=== PATIENT | female | born 1930 | race Two or more races ===

== ENCOUNTER 2017-06-13 05:08 | Inpatient (IN) | payer MEDICARE, MEDICAID ==
[~2017-06-13] VITALS: Ht 154.9 cm; Wt 71.7 kg
[2017-06-13] MEDS ORDERED: KETOROLAC TROMETHAMINE INJ 30 MG/ML VIAL ONE (05:52)
[2017-06-13] MEDS ORDERED: ANESTHESIA TRAY IN PYXIS 1 EA TRAY MC ONE (05:52)
[2017-06-13] MEDS ORDERED: BACITRACIN 50000 UNITS/VIAL ONE (05:53)
[2017-06-13] MEDS ORDERED: BUPIVACAINE 0.25% 75 MG/30 ML VIAL ONE (05:53)
[2017-06-13] MEDS ORDERED: MORPHINE SULFATE/PF 10 MG/10ML (1MG/ML) AMPUL ONE (06:22)
[2017-06-13] MEDS ORDERED: BUPIVACAINE 0.75% DEXT-PF 2 ML AMPUL ONE (06:22)
[2017-06-13] MEDS ORDERED: ROCURONIUM BROMIDE 50 MG/5 ML ONE (06:23)
[2017-06-13] MEDS ORDERED: SUCCINYLCHOLINE CHLORIDE 20 MG/ML VIAL ONE (06:23)
[2017-06-13] MEDS ORDERED: TRANEXAMIC ACID 3,000 MG in SODIUM CHLORIDE IRRIG SOLUTION 70 ML IR ONE (07:30)
[2017-06-13 10:00] VITALS: BP 120/76
[2017-06-13] MEDS ORDERED: INSU10VI2 SQ (10:25)
[2017-06-13] MEDS ORDERED: OXYB5TAB11 PO (10:25)
[2017-06-13] MEDS ORDERED: VALS1TAB52 PO (10:25)
[2017-06-13] MEDS ORDERED: ALPR0.25 PO (10:25)
[2017-06-13] MEDS ORDERED: MAG HYDROX/AL HYDROX/SIMETH 30 ML UDC PO PRN (10:30)
[2017-06-13] MEDS ORDERED: diphenhydrAMINE HCL 25 MG CAPSULE PO PRN (10:30)
[2017-06-13] MEDS ORDERED: MENTHOL/CETYLPYRD (CEPACOL) 1 LOZ LOZENGE MM PRN (10:30)
[2017-06-13] MEDS ORDERED: SENNOSIDES 8.6 MG TABLET PO PRN (10:30)
[2017-06-13] MEDS ORDERED: MAGNESIUM HYDROXIDE 30 ML UDC PO PRN (10:30)
[2017-06-13] MEDS ORDERED: NALOXONE HCL 0.4 MG/ML AMPUL IV PRN (10:30)
[2017-06-13] MEDS ORDERED: BISACODYL SUPP (10 MG) 10 MG/SUPP.RECT SUPP.RECT RC PRN (10:30)
[2017-06-13] MEDS ORDERED: CLONIDINE HCL 0.1 MG TABLET PO PRN (10:30)
[2017-06-13] MEDS ORDERED: HYDROCODONE/APAP 5/325MG 1 EACH TABLET PO PRN (10:30)
[2017-06-13] MEDS: MORPHINE SULFATE INJ 4 MG/ML DISP.SYRIN SQ PRN ×2 (10:35→14:23)
[2017-06-13 10:41] VITALS: BP 126/76
[2017-06-13] MEDS ORDERED: ACETAMINOPHEN 325 MG TABLET PO PRN (11:00)
[2017-06-13] MEDS ORDERED: ONDANSETRON HCL/PF 4 MG/2 ML VIAL IVP PRN (11:00)
[2017-06-13] MEDS ORDERED: ACETAMINOPHEN W/ CODEINE#3 1 EA TABLET PO PRN (11:00)
[2017-06-13] MEDS: IV D5/0.45 NACL 1,000 ML IV PRN ×2 (11:29→23:29)
[2017-06-13] MEDS: ANCEF 1 GM/50 ML D5W IV SCH ×4 (15:38→22:16)
[2017-06-13 16:00] VITALS: BP 149/74
[2017-06-13] MEDS: DOCUSATE SODIUM 100 MG CAPSULE PO SCH (17:00)
[2017-06-13] MEDS ORDERED: DEXTROSE 50%-WATER 50 ML DISP.SYRIN IV PRN ×2 (17:30→20:30)
[2017-06-13] MEDS ORDERED: INSULIN REGULAR, HUMAN 100 UNIT/ML 3 ML VIAL SQ PRN ×2 (17:30→20:30)
[2017-06-13] MEDS ORDERED: BLOOD SUGAR DIAGNOSTIC 1 EACH STRIP IN SCH ×2 (18:00→22:00)
[2017-06-13 20:00] VITALS: BP 151/77
[2017-06-13] MEDS: ALPRAZOLAM 0.25 MG TABLET PO SCH (21:11)
[2017-06-13] MEDS ORDERED: INSULIN GLARGINE, 100 UNIT/ML CARTRIDGE SQ ONE (21:44)
[2017-06-13] MEDS ORDERED: PANTOPRAZOLE 40 MG TABLET.DR PO SCH (22:00)
[2017-06-13] MEDS: *INSULIN REGULAR(HUMULIN R)HUM 100 UNIT/ML VIAL SQ PRN (22:18)
[2017-06-13] MEDS: INSULIN GLARGINE, 100 UNIT/ML CARTRIDGE SQ SCH (22:20)
[2017-06-14 01:24] VITALS: BP 132/72
[2017-06-14] MEDS ORDERED: DEXTROSE 50%-WATER 50 ML DISP.SYRIN IV PRN (02:00)
[2017-06-14] MEDS: HYDROCODONE/APAP 10/325MG 1 EA TABLET PO PRN ×2 (06:08→16:17)
[2017-06-14 06:32] LABS: BASOPHILS % (AUTO) 0.1 % (0.0-2.0); EOSINOPHILS # (AUTO) 0.2 /CMM (0.0-0.7); EOSINOPHILS % (AUTO) 2.5 % (0.0-6.0); HEMATOCRIT 26 % (33-45); HEMOGLOBIN 9.1 g/dL (11.5-14.8); LYMPHOCYTES % (AUTO) 14.8 % (20.0-44.0); MEAN CORPUSCULAR HEMOGLOBIN 30 PG (26.0-33.0); MEAN CORPUSCULAR HGB CONC 34 g/dl (31.0-36.0); MEAN CORPUSCULAR VOLUME 87 fL (82-100); MONOCYTES # (AUTO) 0.9 /CMM (0.1-1.30); MONOCYTES % (AUTO) 13.6 % (2.0-12.0); NEUTROPHILS # (AUTO) 4.5 /CMM (1.8-8.9); PLATELET COUNT (AUTO) 145 /CMM (150-450); RDW COEFFICIENT OF VARIATION 13.6 (11.5-15.0); RED BLOOD CELL COUNT(AUTO) 3.05 MIL/uL (4.0-5.2); WHITE BLOOD COUNT (AUTO) 6.5 K/uL (4.3-11.0)
[2017-06-14] MEDS: BLOOD SUGAR DIAGNOSTIC 1 EACH STRIP IN SCH ×4 (06:37→21:23)
[2017-06-14] MEDS: INSULIN REGULAR, HUMAN 100 UNIT/ML 3 ML VIAL SQ PRN ×3 (06:39→18:05)
[2017-06-14 06:40] LABS: CALCIUM, SERUM 7.6 mg/dL (8.5-10.1); CARBON DIOXIDE 21 mmol/L (21-32); CHLORIDE 103 mmol/L (98-107); GLUCOSE 255 mg/dL (74-106); MAGNESIUM 1.5 mg/dL (1.8-2.4); PHOSPHORUS 2.5 mg/dL (2.5-4.9); POTASSIUM 4.3 mmol/L (3.5-5.1); SODIUM SERUM 134 mmol/L (136-145); UREA NITROGEN, BLOOD 20 mg/dL (7-18)
[2017-06-14 08:00] VITALS: BP 135/84
[2017-06-14] MEDS: ASPIRIN 325 MG TABLET PO SCH ×2 (08:56→18:06)
[2017-06-14] MEDS: MORPHINE SULFATE INJ 4 MG/ML DISP.SYRIN SQ PRN ×2 (08:56→14:02)
[2017-06-14] MEDS: OXYBUTYNIN CHLORIDE 5 MG TABLET PO SCH (08:57)
[2017-06-14] MEDS: VALSARTAN 80 MG TABLET PO SCH (08:57)
[2017-06-14] MEDS: DOCUSATE SODIUM 100 MG CAPSULE PO SCH ×2 (08:57→18:06)
[2017-06-14] MEDS: Magnesium 1GM/D5W 100ML PREMIX 100 ML IV SCH ×3 (10:32→14:06)
[2017-06-14] MEDS: ENOXAPARIN SODIUM 30 MG/0.3 ML DISP.SYRIN SQ SCH (10:34)
[2017-06-14] MEDS: TRAMADOL HCL 50 MG TABLET PO SCH ×2 (10:45→18:06)
[2017-06-14 16:00] VITALS: BP 144/73
[2017-06-14] MEDS ORDERED: MORPHINE SULFATE INJ 4 MG/ML DISP.SYRIN IM/IV ONE (17:26)
[2017-06-14] MEDS ORDERED: MORPHINE SULFATE INJ 4 MG/ML DISP.SYRIN IM/IV PRN (19:30)
[2017-06-14] MEDS: ALPRAZOLAM 0.25 MG TABLET PO SCH (19:43)
[2017-06-14 20:00] VITALS: BP 134/50
[2017-06-14] MEDS: INSULIN GLARGINE, 100 UNIT/ML CARTRIDGE SQ SCH (21:30)
[2017-06-14] MEDS: *INSULIN REGULAR(HUMULIN R)HUM 100 UNIT/ML VIAL SQ PRN (21:30)
[2017-06-15] MEDS: TRAMADOL HCL 50 MG TABLET PO SCH ×2 (03:07→10:25)
[2017-06-15 06:19] LABS: BASOPHILS % (AUTO) 0.2 % (0.0-2.0); EOSINOPHILS # (AUTO) 0.3 /CMM (0.0-0.7); EOSINOPHILS % (AUTO) 3.8 % (0.0-6.0); HEMATOCRIT 23 % (33-45); LYMPHOCYTES # (AUTO) 1.2 /CMM (0.8-4.8); LYMPHOCYTES % (AUTO) 16.8 % (20.0-44.0); MEAN CORPUSCULAR HEMOGLOBIN 30 PG (26.0-33.0); MEAN CORPUSCULAR HGB CONC 34 g/dl (31.0-36.0); MEAN CORPUSCULAR VOLUME 87 fL (82-100); MONOCYTES % (AUTO) 14.1 % (2.0-12.0); NEUTROPHILS # (AUTO) 4.8 /CMM (1.8-8.9); NEUTROPHILS % (AUTO) 65.1 % (43.0-81.0); PLATELET COUNT (AUTO) 144 /CMM (150-450); RDW COEFFICIENT OF VARIATION 14.1 (11.5-15.0); WHITE BLOOD COUNT (AUTO) 7.4 K/uL (4.3-11.0)
[2017-06-15 06:38] LABS: CALCIUM, SERUM 7.9 mg/dL (8.5-10.1); CARBON DIOXIDE 28 mmol/L (21-32); CHLORIDE 100 mmol/L (98-107); GLUCOSE 174 mg/dL (74-106); MAGNESIUM 2.2 mg/dL (1.8-2.4); PHOSPHORUS 2.4 mg/dL (2.5-4.9); POTASSIUM 4.8 mmol/L (3.5-5.1); SODIUM SERUM 131 mmol/L (136-145); UREA NITROGEN, BLOOD 16 mg/dL (7-18)
[2017-06-15] MEDS: BLOOD SUGAR DIAGNOSTIC 1 EACH STRIP IN SCH ×4 (06:59→21:06)
[2017-06-15] MEDS: INSULIN REGULAR, HUMAN 100 UNIT/ML 3 ML VIAL SQ PRN ×3 (06:59→17:27)
[2017-06-15 08:00] VITALS: BP 135/63
[2017-06-15] MEDS: PANTOPRAZOLE 40 MG TABLET.DR PO SCH (09:19)
[2017-06-15] MEDS: DOCUSATE SODIUM 100 MG CAPSULE PO SCH ×2 (09:19→17:25)
[2017-06-15] MEDS: ASPIRIN 325 MG TABLET PO SCH ×2 (09:19→17:25)
[2017-06-15] MEDS: VALSARTAN 80 MG TABLET PO SCH (09:20)
[2017-06-15] MEDS: OXYBUTYNIN CHLORIDE 5 MG TABLET PO SCH (09:21)
[2017-06-15] MEDS: ENOXAPARIN SODIUM 30 MG/0.3 ML DISP.SYRIN SQ SCH (09:23)
[2017-06-15] MEDS ORDERED: K PHOS NEUTRAL 250 MG TABLET PO ONE (12:30)
[2017-06-15] MEDS ORDERED: MORPHINE SULFATE INJ 4 MG/ML DISP.SYRIN IM/IV PRN (13:30)
[2017-06-15 16:00] VITALS: BP 103/55
[2017-06-15] MEDS ORDERED: TRAMADOL HCL 50 MG TABLET PO PRN (18:30)
[2017-06-15 20:00] VITALS: BP 128/61
[2017-06-15] MEDS: *INSULIN REGULAR(HUMULIN R)HUM 100 UNIT/ML VIAL SQ PRN (21:07)
[2017-06-15] MEDS: ALPRAZOLAM 0.25 MG TABLET PO SCH (21:07)
[2017-06-15] MEDS: INSULIN GLARGINE, 100 UNIT/ML CARTRIDGE SQ SCH (21:07)
[2017-06-16] MEDS: INSULIN REGULAR, HUMAN 100 UNIT/ML 3 ML VIAL SQ PRN ×3 (06:02→17:18)
[2017-06-16] MEDS: BLOOD SUGAR DIAGNOSTIC 1 EACH STRIP IN SCH ×3 (06:07→17:16)
[2017-06-16 06:38] LABS: BASOPHILS % (AUTO) 0.3 % (0.0-2.0); EOSINOPHILS # (AUTO) 0.3 /CMM (0.0-0.7); EOSINOPHILS % (AUTO) 3.7 % (0.0-6.0); HEMATOCRIT 22 % (33-45); HEMOGLOBIN 7.6 g/dL (11.5-14.8); LYMPHOCYTES # (AUTO) 1.1 /CMM (0.8-4.8); LYMPHOCYTES % (AUTO) 16.7 % (20.0-44.0); MEAN CORPUSCULAR HEMOGLOBIN 30 PG (26.0-33.0); MEAN CORPUSCULAR HGB CONC 34 g/dl (31.0-36.0); MEAN CORPUSCULAR VOLUME 88 fL (82-100); MONOCYTES # (AUTO) 0.9 /CMM (0.1-1.30); MONOCYTES % (AUTO) 13.7 % (2.0-12.0); NEUTROPHILS # (AUTO) 4.4 /CMM (1.8-8.9); NEUTROPHILS % (AUTO) 65.6 % (43.0-81.0); PLATELET COUNT (AUTO) 149 /CMM (150-450); RDW COEFFICIENT OF VARIATION 13.8 (11.5-15.0); RED BLOOD CELL COUNT(AUTO) 2.54 MIL/uL (4.0-5.2); WHITE BLOOD COUNT (AUTO) 6.7 K/uL (4.3-11.0)
[2017-06-16 06:45] LABS: CALCIUM, SERUM 8.1 mg/dL (8.5-10.1); CARBON DIOXIDE 25 mmol/L (21-32); CHLORIDE 101 mmol/L (98-107); GLUCOSE 212 mg/dL (74-106); PHOSPHORUS 2.8 mg/dL (2.5-4.9); POTASSIUM 4.6 mmol/L (3.5-5.1); SODIUM SERUM 131 mmol/L (136-145); UREA NITROGEN, BLOOD 17 mg/dL (7-18)
[2017-06-16 08:00] VITALS: BP 120/60
[2017-06-16] MEDS: ASPIRIN 325 MG TABLET PO SCH ×2 (08:08→17:15)
[2017-06-16] MEDS: DOCUSATE SODIUM 100 MG CAPSULE PO SCH ×2 (08:08→17:15)
[2017-06-16] MEDS: OXYBUTYNIN CHLORIDE 5 MG TABLET PO SCH (08:09)
[2017-06-16] MEDS: PANTOPRAZOLE 40 MG TABLET.DR PO SCH (08:09)
[2017-06-16] MEDS: VALSARTAN 80 MG TABLET PO SCH (08:09)
[2017-06-16] MEDS: ENOXAPARIN SODIUM 30 MG/0.3 ML DISP.SYRIN SQ SCH (09:00)
[2017-06-16 16:00] VITALS: BP 107/55
== END 2017-06-16 18:20 | disposition home health service (06) | DRG 470 ==
LOC: DS 05:08 → MED 05:10
PROVIDERS: ADMIT Specialist; ATTEND Specialist
PROC: 0SRC0J9 Replacement of Right Knee Joint with Synthetic Substitute, Cemented, Open Approach (ICD-10-PCS; principal; 2017-06-13 06:30)
DX: M17.11 Unilateral primary osteoarthritis, right knee (principal); E11.65 Type 2 diabetes mellitus with hyperglycemia; D63.8 Anemia in other chronic diseases classified elsewhere; E44.1 Mild protein-calorie malnutrition; E83.42 Hypomagnesemia; E66.9 Obesity, unspecified; E78.5 Hyperlipidemia, unspecified; I10 Essential (primary) hypertension; Z90.49 Acquired absence of other specified parts of digestive tract; F41.9 Anxiety disorder, unspecified; Z68.29 Body mass index [BMI] 29.0-29.9, adult; Z79.4 Long term (current) use of insulin
CPT/HCPCS: 36415; 71045-TC; 80048-TC; 82962-TC; 83735-TC; 84100-TC; 85025-TC; 86850-TC; 87081-TC; 88305-TC; 88311-TC; 97110-TC; 97116-TC; 97530-TC; 97760-TC; A4217; J0330; J0690; J1650; J1815; J1885; J2270; J2274; J2405; J3475; J3490; J7060; Z7610